=== PATIENT | male | born 1940 | race Caucasian/White ===

== ENCOUNTER 2019-10-24 12:41 | Inpatient (IN) ==
[2019-10-24] MEDS ORDERED: DOCUSATE SODIUM 100 MG CAPSULE PO PRN (16:35)
[2019-10-24] MEDS ORDERED: ONDANSETRON 4 MG/2 ML VIAL IV PRN (16:35)
[2019-10-24] MEDS ORDERED: GLUCAGON 1 MG VIAL IM PRN (16:35)
[2019-10-24] MEDS ORDERED: DEXTROSE 50% 25 GM/50 ML VIAL IV PRN (16:35)
[2019-10-24] MEDS ORDERED: MORPHINE 4 MG/1 ML VIAL IV PRN (16:38)
[2019-10-24] MEDS: SODIUM CHLORIDE 0.9% 1,000 ML IV SCH (18:26)
[2019-10-24] MEDS: ENOXAPARIN 40 MG/0.4 ML SYRINGE SUBCUT SCH (18:40)
[2019-10-24 18:47] LABS: Basophils % 0.3 % (0.0-0.8); Eosinophils % 0.2 % (0.00-10.9); Hemoglobin 9.7 GM/DL (14.0-18.0); Immature Granulocytes % 0.5 %; Immature Granulocytes Absolute 0.05 #; Lymphocytes # 0.7 10*3/uL (1.4-4.0); Lymphocytes % 6.8 % (21.2-54.2); Mean Corpuscular HGB Conc 33.4 GM/DL (32-36); Mean Corpuscular Volume 94.5 FL (87-102); Mean Platelet Volume 9.1 FL (9.6-12.0); Monocytes % 6.3 % (1.7-12.7); Neutrophils % 85.9 % (38.7-73.9); Platelet Count 175 T/CUMM (130-400); Red Blood Count 3.07 MC/CUMM (3.8-5.5); Red Cell Distribution Width 14.4 % (9.3-17.3)
[2019-10-24 19:00] LABS: Apearance,Urine CLOUDY (Clear); Bacteria,Urine Occasional /HPF (Few); Bilirubin,Urine Negative (Negative); Blood, Urine Moderate mg/dL (Negative); Calcium 9.1 MG/DL (8.5-10.1); Glucose,Urine (UA) Negative (Negative); Ketones,Urine Negative (Negative); Nitrite,Urine Negative (Negative); Osmolality,Calculated 265.8 MOS/KG (273-304); Protein,Urine Negative; RBC,Urine 7 /HPF (0-4); Squamous Epithelial Cell,Urine Occasional /HPF (0-10); Total Protein 6.6 G/DL (6.4-8.3); Urine Color Yellow (Yellow); Urine Specific Gravity 1.009 (1.001-1.035); Urine Urobilinogen < 2.0 EU/DL (0.2-1.0); WBC,Urine 140 /HPF (0-6)
[2019-10-24] MEDS: METOPROLOL TARTRATE 25 MG TABLET PO SCH (21:44)
[2019-10-24] MEDS: ATORVASTATIN 40 MG TABLET PO SCH (21:44)
[2019-10-24] MEDS: amLODIPine 5 MG TABLET PO SCH (21:44)
[2019-10-25 05:48] LABS: Calcium 8.4 MG/DL (8.5-10.1); Osmolality,Calculated 270.2 MOS/KG (273-304)
[2019-10-25] MEDS: cefTRIAXone 2,000 MG in SYRINGE 1 EACH IV SCH (09:19)
[2019-10-25] MEDS: PANTOPRAZOLE 40 MG TABLET PO SCH (09:19)
[2019-10-25] MEDS: METOPROLOL TARTRATE 25 MG TABLET PO SCH ×2 (09:19→20:53)
[2019-10-25] MEDS: lisinopriL 20 MG TABLET PO SCH ×2 (09:19→09:25)
[2019-10-25] MEDS: ASPIRIN EC 81 MG TABLET PO SCH (09:19)
[2019-10-25] MEDS: SODIUM CHLORIDE 0.9% 1,000 ML IV SCH ×2 (09:25→20:55)
[2019-10-25] MEDS: ENOXAPARIN 40 MG/0.4 ML SYRINGE SUBCUT SCH (17:55)
[2019-10-25] MEDS: amLODIPine 5 MG TABLET PO SCH (20:53)
[2019-10-25] MEDS: ATORVASTATIN 40 MG TABLET PO SCH (20:53)
[2019-10-26] MEDS: ASPIRIN EC 81 MG TABLET PO SCH (09:42)
[2019-10-26] MEDS: METOPROLOL TARTRATE 25 MG TABLET PO SCH ×2 (09:42→20:21)
[2019-10-26] MEDS: PANTOPRAZOLE 40 MG TABLET PO SCH (09:42)
[2019-10-26] MEDS: lisinopriL 20 MG TABLET PO SCH (09:42)
[2019-10-26] MEDS: cefTRIAXone 2,000 MG in SYRINGE 1 EACH IV SCH (09:43)
[2019-10-26] MEDS: SODIUM CHLORIDE 0.9% 1,000 ML IV SCH ×2 (11:10→23:52)
[2019-10-26] MEDS: AMPICILLIN 500 MG CAPSULE PO SCH ×3 (14:54→20:21)
[2019-10-26] MEDS: ENOXAPARIN 40 MG/0.4 ML SYRINGE SUBCUT SCH (17:49)
[2019-10-26] MEDS: amLODIPine 5 MG TABLET PO SCH (20:21)
[2019-10-26] MEDS: ATORVASTATIN 40 MG TABLET PO SCH (20:21)
[2019-10-27] MEDS: ASPIRIN EC 81 MG TABLET PO SCH (10:27)
[2019-10-27] MEDS: PANTOPRAZOLE 40 MG TABLET PO SCH (10:27)
[2019-10-27] MEDS: METOPROLOL TARTRATE 25 MG TABLET PO SCH ×2 (10:27→21:33)
[2019-10-27] MEDS: AMPICILLIN 500 MG CAPSULE PO SCH ×4 (10:27→21:33)
[2019-10-27] MEDS: lisinopriL 20 MG TABLET PO SCH (10:27)
[2019-10-27] MEDS: SODIUM CHLORIDE 0.9% 1,000 ML IV SCH (12:26)
[2019-10-27] MEDS: ENOXAPARIN 40 MG/0.4 ML SYRINGE SUBCUT SCH (17:17)
[2019-10-27] MEDS: amLODIPine 5 MG TABLET PO SCH (21:33)
[2019-10-27] MEDS: ATORVASTATIN 40 MG TABLET PO SCH (21:33)
[2019-10-28 06:13] LABS: Calcium 8.7 MG/DL (8.5-10.1); Osmolality,Calculated 279.5 MOS/KG (273-304)
[2019-10-28 06:28] LABS: Basophils % 0.5 % (0.0-0.8); Eosinophils # 0.1 10*3/uL (0.0-0.87); Eosinophils % 1.9 % (0.00-10.9); Hematocrit 22.4 VOL% (42.0-52.0); Immature Granulocytes % 0.6 %; Immature Granulocytes Absolute 0.04 #; Lymphocytes # 0.8 10*3/uL (1.4-4.0); Lymphocytes % 13.4 % (21.2-54.2); Mean Corpuscular HGB Conc 33.5 GM/DL (32-36); Mean Corpuscular Volume 93.3 FL (87-102); Mean Platelet Volume 9.7 FL (9.6-12.0); Monocytes % 8.1 % (1.7-12.7); Neutrophils % 75.5 % (38.7-73.9); Platelet Count 160 T/CUMM (130-400); Red Cell Distribution Width 14.2 % (9.3-17.3); White Blood Count 6.3 T/CUMM (4-12)
[2019-10-28 06:29] LABS: Hemoglobin 7.5 GM/DL (14.0-18.0)
[2019-10-28] MEDS: PANTOPRAZOLE 40 MG TABLET PO SCH (09:24)
[2019-10-28] MEDS: ASPIRIN EC 81 MG TABLET PO SCH (09:24)
[2019-10-28] MEDS: lisinopriL 20 MG TABLET PO SCH (09:24)
[2019-10-28] MEDS: METOPROLOL TARTRATE 25 MG TABLET PO SCH (09:25)
[2019-10-28] MEDS: AMPICILLIN 500 MG CAPSULE PO SCH ×2 (09:25→13:05)
[2019-10-28 12:25] LABS: Basophils % 0.4 % (0.0-0.8); Eosinophils # 0.2 10*3/uL (0.0-0.87); Eosinophils % 1.6 % (0.00-10.9); Hematocrit 24.9 VOL% (42.0-52.0); Hemoglobin 8.3 GM/DL (14.0-18.0); Immature Granulocytes % 0.4 %; Immature Granulocytes Absolute 0.04 #; Lymphocytes # 1.1 10*3/uL (1.4-4.0); Lymphocytes % 11.5 % (21.2-54.2); Mean Corpuscular HGB Conc 33.3 GM/DL (32-36); Mean Corpuscular Volume 95.4 FL (87-102); Mean Platelet Volume 8.9 FL (9.6-12.0); Neutrophils % 79.1 % (38.7-73.9); Platelet Count 170 T/CUMM (130-400); Red Blood Count 2.61 MC/CUMM (3.8-5.5); Red Cell Distribution Width 14.3 % (9.3-17.3); White Blood Count 9.4 T/CUMM (4-12)
[2019-10-28 17:19] VITALS: BP 137/60
[2019-10-28] MEDS ORDERED: POTASSIUM CHLORIDE 10 MEQ TABLET PO SCH (21:00)
== END 2019-10-28 17:05 | DRG 536 ==
LOC: N.ED 12:41 → N.EDINP 16:35 → N.3E 16:55
PROVIDERS: ADMIT Emergency Medicine; ATTEND Emergency Medicine